=== PATIENT | female | born 1965 | race Caucasian/White ===

== ENCOUNTER 2020-01-11 17:58 | Emergency (ER) | payer BC, OTHER ==
[2020-01-11 18:48] VITALS: BP 125/86
[2020-01-11] MEDS ORDERED: Lidocaine 1% MPF ** 5 ML VIAL INJ ONE (19:13)
[2020-01-11] MEDS ORDERED: Tetan/Diph/Pertus SYR(Tdap)* 0.5 ML SYR(BOOSTRIX) use SYR contains LATEX IM ONE (19:34)
--- NOTE | 2020-01-11 19:58 | UC ---
Laceration HPI - HPI Summary HPI Summary: 54yo female presenting with laceration of left index finger that occurred approximately 1 hour ago when she cut it on a tin can while cooking. States it bled immediately and has not completely stopped. Denies decreased ROM. Denies numbness and tingling. Denies pain. States last tetanus was likely more than 5 years ago but is not sure and would like booster today. - History Of Current Complaint Chief Complaint: UCLaceration Stated Complaint: LEFT FINGER LACERATION Hx Obtained From: Patient Hx Last Menstrual Period: 08/30/14 Pain Intensity: 0 Pain Scale Used: 0-10 Numeric Related History: Dominant Hand Right - Allergies/Home Medications Allergies/Adverse Reactions: Allergies Allergy/AdvReac Type Severity Reaction Status Date / Time chloroquine Allergy Rash Verified 01/11/20 18:51 Home Medications: Home Medications NK [No Home Medications Reported] 01/11/20 [History Confirmed 01/11/20] PMH/Surg Hx/FS Hx/Imm Hx - Surgical History Surgical History: Yes Surgery Procedure, Year, and Place: b/l LASIX eye surgery,Lymph node remove from left pelvic area - Social History Alcohol Use: Occasionally Substance Use Type: None Smoking Status (MU): Never Smoked Tobacco Review of Systems All Other Systems Reviewed And Are Negative: No Constitutional: Positive: Negative Skin: Positive: Other - left index finger laceration Respiratory: Positive: Negative Cardiovascular: Positive: Negative Neurovascular: Positive: Negative Musculoskeletal: Positive: Negative Neurological/Mental Status: Positive: Negative Physical Exam Triage Information Reviewed: Yes Appearance: Well-Appearing, No Pain Distress, Well-Nourished Vital Signs: Initial Vital Signs Temp 97.7 F 01/11/20 18:43 Pulse 99 01/11/20 18:43 Resp 16 01/11/20 18:43 BP 125/86 01/11/20 18:43 Pulse Ox 99 01/11/20 18:43 Vital Signs Reviewed: Yes Eyes: Positive: Conjunctiva Clear ENT: Positive: Hearing grossly normal Neck: Positive: Supple Respiratory: Positive: No respiratory distress, No accessory muscle use Cardiovascular: Positive: Pulses Normal, Brisk Capillary Refill Musculoskeletal: Positive: ROM Intact - left index finger flexion/extension Neurological Exam: Other - sensation grossly intact Neurological: Positive: Alert Psychological: Positive: Age Appropriate Behavior Skin: Positive: Other - 1.3cm superficial linear laceration noted on pulp of left index finger, minimally bleeding Laceration Repair - Laceration Repair 1 Description: Linear Laceration Size After Repair: Length (cm) - 1.3 Type Injection: Local Anesthesia Used: 1.0% Lido Cleansing Completed Via Routine Prep: Yes Irrigation With Pressure Irrigation Device: Yes Closure Material: Sutures - two sutures Closure Method: Single Layer Suture Of: Skin Suture Type: Prolene - 4-0 Laceration Course/Dx - Course/Dx Course Of Treatment: Patient's laceration was cleansed by RN. No foreign bodies present. A time out was performed. I anesthetized with 1% lidocaine and placed two sutures. The wound was then dressed with tube gauze by RN. Patient also received tetanus booster. I educated patient on wound and suture care. I also educated on s/s of infection and instructed to return or go to ED if any red flags occur. Instructed to return or follow up with pcp to have stitches removed in 7-10 days. Patient voiced understanding and agreed with treatment plan. - Diagnosis Provider Diagnosis: Laceration of left index finger Discharge ED - Sign-Out/Discharge Documenting (check all that apply): Patient Departure All imaging exams completed and their final reports reviewed: No Studies - Discharge Plan Condition: Stable Disposition: HOME Patient Education Materials: Diphtheria/Acellular Pertussis/Tetanus Booster Vaccine (By injection), Care For Your Stitches (ED), Finger Laceration (ED) Referrals: Thomas Odonnell MD [Primary Care Provider] - Additional Instructions: You had 2 stitches placed in your finger today. Keep your stitches clean and dry for the first 24-48 hours. After that you may gently wash with warm water and soap daily. Change dressing as needed. Your stitches will not absorb. Return in 7-10 days to have your stitches removed. You may take over the counter pain medications as directed for pain relief. Return or go to the emergency department if you notice any redness, increased pain, swelling, fluid drainage, fever, or nausea and vomiting. - Billing Disposition and Condition Condition: STABLE Disposition: Home - Attestation Statements Provider Attestation: Chart has been reviewed. I did not see the patient but was available for consult. EK.
== END 2020-01-11 19:49 | disposition home or self-care (01) ==
LOC: UCCORT 17:58
DX: S61.211A Laceration without foreign body of left index finger without damage to nail, initial encounter (principal); W26.8XXA Contact with other sharp object(s), not elsewhere classified, initial encounter; Y93.G3 Activity, cooking and baking; Y92.9 Unspecified place or not applicable; Z23 Encounter for immunization; Z88.8 Allergy status to other drugs, medicaments and biological substances
CPT/HCPCS: 12001; 90471; 90715; 99211; G0463